=== PATIENT | male | born 1965 | race Caucasian/White ===

== ENCOUNTER 2020-10-22 17:36 | Emergency (ER) | payer OTHER, SELFPAY ==
[2020-10-22 17:41] VITALS: BP 115/79; PULSE 102; RESP 14; TEMP 36.3; O2SAT 99
--- NOTE | 2020-10-22 18:35 | ED.GENADULT ---
HPI - General Adult General Chief complaint: Unspecified Stated complaint: medication refill Time Seen by Provider: 10/22/20 18:13 Source: patient Mode of arrival: ambulatory Limitations: no limitations History of Present Illness HPI narrative: 55-year-old with a history of stage III lung cancer here for pain medication refill. Patient states that Dr. Badillo is off on sick leave and he is unable to get hold of his oncologist or primary doctor. He states that he ran out of his hydrocodone tablets few days ago. Related Data Home Medications Medication Instructions Recorded Confirmed hydrocodone-acetaminophen 1 tablet PO Q6H PRN 10/22/20 Allergies Allergy/AdvReac Type Severity Reaction Status Date / Time No Known Allergies Allergy Verified 10/22/20 18:16 Review of Systems Review of Systems: All systems reviewed & are unremarkable except as noted in HPI and below Constitutional: Constitutional: Reports no additional constitutional complaints Eyes: Eyes: Reports no additional eye complaints ENT: Reports system reviewed and no additional complaints, except as documented Cardiovascular: Cardiovascular: Reports no additional cardiovascular complaints Respiratory: Respiratory: Reports as per HPI Gastrointestinal: Gastrointestinal: Reports no additional gastrointestinal complaints Musculoskeletal: Musculoskeletal: Reports no additional musculoskeletal complaints Exam Narrative: Exam Narrative: GENERAL: Well-appearing, well-nourished, and in no acute distress. HEAD: Normocephalic, atraumatic. EYES: PERRLA and EOMI. NECK: Supple. CHEST: Clear to auscultation. No respiratory distress. HEART: Regular rate and rhythm. No murmur heard. Normal peripheral pulses.. EXTREMITIES: Normal range of motion. No edema. SKIN: Warm, dry, no rash. NEURO: No focal deficits. Alert and oriented x3. PSYCH: Normal mood and affect. Course Course Emergency Course: Inform patient that I would be able to give him 12 tablets for the next 2 days. He needs to talk to his oncologist for refills of his pain medication. Vital Signs Vital signs: Vital Signs Temperature 36.3 C L 10/22/20 17:41 Pulse Rate 102 H 10/22/20 17:41 Respiratory Rate 14 10/22/20 17:41 Blood Pressure 115/79 10/22/20 17:41 Pulse Oximetry 99 10/22/20 17:41 Temperature 36.3 C L 10/22/20 17:41 Pulse Rate 102 H 10/22/20 17:41 Respiratory Rate 14 10/22/20 17:41 Blood Pressure 115/79 10/22/20 17:41 Pulse Oximetry 99 10/22/20 17:41 Medical Decision Making Vital Signs Vital Signs: Vital Signs Temperature 36.3 C L 10/22/20 17:41 Pulse Rate 102 H 10/22/20 17:41 Respiratory Rate 14 10/22/20 17:41 Blood Pressure 115/79 10/22/20 17:41 Pulse Oximetry 99 10/22/20 17:41 Temperature 36.3 C L 10/22/20 17:41 Pulse Rate 102 H 10/22/20 17:41 Respiratory Rate 14 10/22/20 17:41 Blood Pressure 115/79 10/22/20 17:41 Pulse Oximetry 99 10/22/20 17:41 Discharge Plan Discharge Clinical Impression: Medication refill Patient Disposition: Home, Self-Care Condition: Stable Instructions: Antibiotic Form, Medicine Refill (ED) Prescriptions: New hydrocodone-acetaminophen 5-325 mg tablet 1 tablet PO Q8H PRN (Reason: pain) Qty: 10 RF: 0 No Action hydrocodone-acetaminophen 10-325 mg Tablet 1 tablet PO Q6H PRN (Reason: Pain) RF: 0 Follow-up/Referrals: Dylon,Kristie Castillo MD [Primary Care Provider] - Time of Disposition: 18:39
== END 2020-10-22 18:48 | disposition home or self-care (01) ==
PROVIDERS: Emergency Provider Family Medicine; PCP Family Medicine
DX: C34.90 Malignant neoplasm of unspecified part of unspecified bronchus or lung (principal)
CPT/HCPCS: 99281